=== PATIENT | male | born 1995 | race Caucasian/White ===

== ENCOUNTER 2017-11-14 23:51 | Emergency (ER) | payer OTHER ==
[2017-11-15] MEDS ORDERED: PERMETHRIN 5% 60 GM CREAM TP ONE (01:21)
--- NOTE | 2017-11-15 01:24 | EDPHY ---
H & P Stated Complaint: abrasion to left knee Time Seen by Provider: 11/15/17 00:37 HPI/ROS: HPI The patient presents with left knee injury which occurred just prior to arrival. [place] on the trail and fell forward landing on his knee. He cleaned the wound but it continued to bleed so he was worried that he needed stitches. The patient also reports several days of an itchy rash on his lower leg. REVIEW OF SYSTEMS Constitutional: No fever, no chills. Eyes: No discharge. ENT: No sore throat. Cardiovascular: No chest pain, no palpitations. Respiratory: No cough, no shortness of breath. Gastrointestinal: No abdominal pain, no vomiting. Genitourinary: No hematuria. Musculoskeletal: No back pain. Skin: No rashes. Neurological: No headache. PMHx: Healthy Soc Hx: Housed here with a roommate PHYSICAL General Appearance: Alert, no distress Eyes: Pupils equal and round no pallor or injection ENT, Mouth: Mucous membranes moist Respiratory: There are no retractions, lungs are clear to auscultation Cardiovascular: Regular rate and rhythm Gastrointestinal: Abdomen is soft and non-tender, no masses, bowel sounds normal Neurological: A&O, moves all extremities Skin: Warm and dry, right leg with an linear rash measuring about 10 cm Musculoskeletal: Neck is supple non tender Extremities: Left knee with 5 cm laceration, distal portion is deep and slightly gaping, does not appear to violate the joint, full range of motion of the knee without difficulty, there is road rash throughout the anterior surface of the knee. Psychiatric: Patient is oriented X 3, there is no agitation Source: Patient Exam Limitations: No limitations - Personal History Current Tetanus/Diphtheria Vaccine: Unsure Current Tetanus Diphtheria and Acellular Pertussis (TDAP): Unsure - Medical/Surgical History Hx Asthma: No Hx Chronic Respiratory Disease: No Hx Diabetes: No Hx Cardiac Disease: No Hx Renal Disease: No Hx Cirrhosis: No Hx Alcoholism: No Hx HIV/AIDS: No Hx Splenectomy or Spleen Trauma: No Other PMH: denies - Social History Smoking Status: Current some day smoker Constitutional: Initial Vital Signs Temperature (C) 36.3 C 11/14/17 23:54 Heart Rate 96 11/14/17 23:54 Respiratory Rate 16 11/14/17 23:54 Blood Pressure 151/76 H 11/14/17 23:54 O2 Sat (%) 96 11/14/17 23:54 O2 Delivery Mode Room Air Allergies/Adverse Reactions: No Known Allergies Allergy (Unverified 11/14/17 23:57) Home Medications: Medication Instructions Recorded Permethrin 5% [Elimite 5%] 60 maria c TP ONCE #1 cream 11/15/17 Medical Decision Making Procedures: LACERATION REPAIR Procedure: Laceration repair. Verbal consent was obtained from the patient. The linear 4 cm laceration on the left knee was anesthetized using lidocaine with epinephrine. The wound was scrubbed, draped and explored to its base with a gloved finger. There were no deep structures involved. No tendon injury was identified. The wound required extensive debridement . The wound was repaired with a single horizontal mattress suture of 4-0 Prolene. The wound repair was simple. The procedure was performed by myself. Differential Diagnosis: This is a 22-year-old male who presents after fall, landing on his knee on gravel. He is complaining of knee pain and has sustained a laceration which had its distal aspect is deep and gaping. He would benefit from closure with suturing, the more proximal area of the wound is superficial and less gaping and will not require repair. We were able to cleanse his wound thoroughly, however he does still have some imbedded very small pieces of gravel which I have informed him about. I have advised him to continue wound care to the area with antibiotic ointment and washing after 24 hr. He also appears to have scabies on his opposite leg. He does have a new housing situation. I will treat him with permethrin here and have discussed treatment at home, washing linens. He will be discharged from the emergency department with instructions for wound care and return in 7 days for suture removal. - Data Points Medications Given: Discontinued Medications Permethrin (Elimite 5%) 1 maria c TP EDNOW ONE Stop: 11/15/17 01:22 Last Admin: 11/15/17 01:56 Dose: 1 dose Departure - Departure Disposition: Home, Routine, Self-Care Clinical Impression: Knee laceration, Scabies, Lower leg abrasion Condition: Good Instructions: Care For Your Stitches (ED), Scabies (ED) Additional Instructions: Please return to the ER in 7 days to have your stitches removed. You should keep the dressing on for the next 24 hr. After that, you can take the dressing off and get the wound wet in the shower. There is some debris under you're skin that we were not able to removed. With a shower leaving the water run on this area for about 10 min, some of the debris may be able to come out. Referrals: NONE *PRIMARY CARE P,. [Primary Care Provider] - As per Instructions Prescriptions: Permethrin 5% [Elimite 5%] 60 maria c TP ONCE #1 cream
[2017-11-15 02:05] VITALS: BP 132/80
== END 2017-11-15 02:05 | disposition home or self-care (01) ==
PROC: 0HQLXZZ Repair Left Lower Leg Skin, External Approach (ICD-10-PCS; principal; 2017-11-14)
DX: S81.012A Laceration without foreign body, left knee, initial encounter (principal); S80.812A Abrasion, left lower leg, initial encounter; B86 Scabies; F17.200 Nicotine dependence, unspecified, uncomplicated; W18.39XA Other fall on same level, initial encounter; Y99.8 Other external cause status